=== PATIENT | male | born 1985 | race Caucasian/White ===

== ENCOUNTER 2023-09-23 12:22 | Emergency (ER) | payer OTHER ==
[~2023-09-23] VITALS: Ht 177.8 cm; Wt 86.2 kg
[2023-09-23 13:10] LABS: BASOPHILS # (AUTO) 0.1 K/UL (0.0-0.2); BASOPHILS % (AUTO) 1.1 % (0.0-2.0); EOSINOPHILS # (AUTO) 0.2 K/uL (0.0-0.7); EOSINOPHILS % (AUTO) 4.7 % (0.0-7.0); HEMATOCRIT 40.9 % (36.7-47.1); LYMPHOCYTES # (AUTO) 0.5 K/uL (0.8-4.8); LYMPHOCYTES % (AUTO) 9.2 % (20.5-51.5); MEAN CORPUSCULAR HEMOGLOBIN 28.9 uug (23.8-33.4); MEAN CORPUSCULAR HGB CONC 34 g/dL (32.5-36.3); MEAN CORPUSCULAR VOLUME 84.4 fL (73.0-96.2); MONOCYTES # (AUTO) 0.5 K/uL (0.1-1.30); MONOCYTES % (AUTO) 8.8 % (0.0-11.0); NEUTROPHILS % (AUTO) 76.2 % (38.5-71.5); PLATELET COUNT (AUTO) 162 K/uL (152-348); RED BLOOD CELL COUNT(AUTO) 4.85 MIL/uL (4.06-5.63); WHITE BLOOD COUNT (AUTO) 5.3 K/uL (3.6-10.2)
[2023-09-23 13:17] LABS: CALCIUM 8.8 mg/dL (8.5-10.1); CARBON DIOXIDE 32 mmol/L (21-32); CHLORIDE 103 mmol/L (98-107); GLUCOSE 102 mg/dL (74-106); POTASSIUM 4.4 mmol/L (3.5-5.1); SODIUM SERUM 139 mmol/L (136-145); UREA NITROGEN, BLOOD 8 mg/dL (7-18)
[2023-09-23 13:31] LABS: ALANINE AMINOTRANSFERASE 27 U/L (16-63); ALBUMIN 2.9 g/dL (3.4-5.0); ALKALINE PHOSPHATASE 63 U/L (50-136); ASPARTATE AMINOTRANSFERASE 8 U/L (15-37); BILIRUBIN,DIRECT 0.1 mg/dL (0.0-0.2); BILIRUBIN,TOTAL 0.3 mg/dL (0.2-1.0); NT-PRO BNP 130 pg/mL (0-125); TOTAL PROTEIN, SERUM 6.6 g/dL (6.4-8.2)
[2023-09-23] MEDS ORDERED: AZITHROMYCIN 250 MG TABLET ONE (13:54)
[2023-09-23] MEDS ORDERED: PROM118S5 PO (13:54)
[2023-09-23] MEDS ORDERED: AZIT500T PO (13:54)
[2023-09-23] MEDS ORDERED: predniSONE 50 MG TABLET ONE (13:54)
[2023-09-23] MEDS ORDERED: PRED50TA PO (13:54)
[2023-09-23] MEDS ORDERED: CEFD300C3 PO (13:54)
[2023-09-23] MEDS: predniSONE 50 MG TABLET PO ONE (13:56)
[2023-09-23] MEDS: AZITHROMYCIN 250 MG TABLET PO ONE (13:56)
[2023-09-23 14:02] VITALS: BP 122/76; TEMP 98; O2SAT 99
== END 2023-09-23 14:03 | disposition home or self-care (01) ==
LOC: ER 12:22
DX: J18.1 Lobar pneumonia, unspecified organism (principal)
CPT/HCPCS: 99284; 71045; 80076; 80048; 83880; 85025; 84145; 87040 ×2; 84484; 36415; J7512; A4606; A4663; Q0144

== ENCOUNTER 2024-02-20 17:54 | Emergency (ER) | payer OTHER ==
[~2024-02-20] VITALS: Ht 180.3 cm; Wt 86.2 kg
[~2024-02-20 17:54] MED LIST: AZIT500T PO; CEFD300C3 PO; PRED50TA PO; PROM118S5 PO
[2024-02-20] MEDS: IV NORMAL SALINE 1000 ML BAG IV ONE (19:01)
[2024-02-20] MEDS ORDERED: CEFTRIAXONE /D5W 50ML IVPB **ER PYXIS IV ONE (19:05)
[2024-02-20] MEDS ORDERED: AZITHROMYCIN 250 MG TABLET ONE (19:05)
[2024-02-20] MEDS: AZITHROMYCIN 250 MG TABLET PO ONE (19:15)
[2024-02-20] MEDS: CEFTRIAXONE 1 G in IV DEXTROSE 5% 50 ML IV ONE (19:15)
[2024-02-20 19:23] LABS: CALCIUM 8.6 mg/dL (8.5-10.1); CARBON DIOXIDE 28 mmol/L (21-32); CHLORIDE 105 mmol/L (98-107); CREATININE 0.9 mg/dL (0.6-1.3); GLUCOSE 95 mg/dL (74-106); POTASSIUM 3.8 mmol/L (3.5-5.1); SODIUM SERUM 140 mmol/L (136-145); UREA NITROGEN, BLOOD 13 mg/dL (7-18)
[2024-02-20 19:24] LABS: BASOPHILS % (AUTO) 0.4 % (0.0-2.0); DIFFERENTIAL COMMENT 1; EOSINOPHILS % (AUTO) 0.8 % (0.0-7.0); HEMATOCRIT 40.4 % (36.7-47.1); HEMOGLOBIN 13.5 g/dL (12.5-16.3); LYMPHOCYTES # (AUTO) 0.6 K/uL (0.8-4.8); LYMPHOCYTES % (AUTO) 17.9 % (20.5-51.5); MEAN CORPUSCULAR HEMOGLOBIN 29.1 uug (23.8-33.4); MEAN CORPUSCULAR HGB CONC 33 g/dL (32.5-36.3); MEAN CORPUSCULAR VOLUME 87.1 fL (73.0-96.2); MONOCYTES # (AUTO) 0.4 K/uL (0.1-1.30); MONOCYTES % (AUTO) 11.2 % (0.0-11.0); NEUTROPHILS # (AUTO) 2.3 K/uL (1.8-8.9); NEUTROPHILS % (AUTO) 69.7 % (38.5-71.5); PLATELET COUNT (AUTO) 146 K/uL (152-348); RED BLOOD CELL COUNT(AUTO) 4.64 MIL/uL (4.06-5.63); RED CELL DISTRIBUTION WIDTH 12.9 % (12.1-16.2); WHITE BLOOD COUNT (AUTO) 3.3 K/uL (3.6-10.2)
[2024-02-20 19:36] LABS: ALANINE AMINOTRANSFERASE 26 U/L (16-63); ALBUMIN 3.6 g/dL (3.4-5.0); ALKALINE PHOSPHATASE 66 U/L (50-136); ASPARTATE AMINOTRANSFERASE 16 U/L (15-37); BILIRUBIN,DIRECT 0.1 mg/dL (0.0-0.2); BILIRUBIN,TOTAL 0.3 mg/dL (0.2-1.0); NT-PRO BNP 47 pg/mL (0-125); TOTAL PROTEIN, SERUM 6.4 g/dL (6.4-8.2)
[2024-02-20] MEDS ORDERED: AZIT500T2 PO (20:35)
[2024-02-20 20:45] VITALS: BP 110/61; TEMP 98.6; O2SAT 100
== END 2024-02-20 20:45 | disposition home or self-care (01) ==
LOC: ER 17:57
DX: J18.0 Bronchopneumonia, unspecified organism (principal); Z79.52 Long term (current) use of systemic steroids
CPT/HCPCS: 99285; 96365; 71045; 80076; 80048; 83880; 85025; 84145; 85730; 87040 ×2; 84484; 36415; 93005; 83605; J0696; A4606; A4663; Q0144

== ENCOUNTER 2024-02-24 16:22 | Emergency (ER) | payer OTHER ==
[~2024-02-24] VITALS: Ht 180.3 cm; Wt 86.2 kg
[~2024-02-24 16:22] MED LIST changes: +AZIT500T2 PO
[2024-02-24 17:10] VITALS: O2SAT 98
== END 2024-02-24 18:02 | disposition left against medical advice (07) ==
LOC: ER 16:22
DX: R05.9 Cough, unspecified (principal); Z79.52 Long term (current) use of systemic steroids; Z53.21 Procedure and treatment not carried out due to patient leaving prior to being seen by health care provider
CPT/HCPCS: A4606; A4663